=== PATIENT | male | born 1960 | race Hispanic/Latino ===

== ENCOUNTER → 2018-09-24 | Outpatient (CLI) | payer SELFPAY ==
--- NOTE | 2018-09-24 17:32 | Diagnostic Imaging Report ---
EXAMINATION: CHEST 2 VIEWS INDICATION: Lung cancer. ^SECONDARY MALIGNANT NEOPLASM OF UNSPEC'D LUNG COMPARISON: None FINDINGS: TUBES and LINES: None. LUNGS: Lungs are well inflated. Chronic appearing changes in the lungs with what appears to be minimal scarring/atelectasis at the left lung base. There is no evidence of pneumonia or pulmonary edema. PLEURA: No pleural effusion or pneumothorax. HEART AND MEDIASTINUM: The cardiomediastinal silhouette is unremarkable. BONES AND SOFT TISSUES: No acute osseous lesion. Soft tissues are unremarkable. UPPER ABDOMEN: No free air under the diaphragm. IMPRESSION: Chronic appearing changes in the lungs with what appears to be minimal scarring/atelectasis at the left lung base. Signed by: Dr. Tyler Currie M.D. on 09/24/2018 5:29 PM
== END ==
LOC: RAD 17:00
PROVIDERS: ATTEND Nurse Practitioner Acute Care
DX: C78.00 Secondary malignant neoplasm of unspecified lung (principal)
CPT/HCPCS: 71046

== ENCOUNTER 2019-12-23 19:09 | Inpatient (IN) | payer MEDICARE, OTHER ==
[~2019-12-23] VITALS: Ht 170.2 cm; Wt 87.1 kg
--- OUTSIDE RECORDS SUMMARY | 2019-12-23 19:11 | XMS REPORT ---
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 Allergies, Adverse Reactions, Alerts This patient has no known allergies or adverse reactions. Medications This patient has no known medications. Encounters Start Date/Time End Date/Time Encounter Type Admission Type [facility] Care Department Encounter ID 2019-09-02 11:09:39 Inpatient [facility] [id number] 2019-07-22 13:26:26 Inpatient [facility] [id number] 2019-06-24 11:08:05 Inpatient [facility] [id number] 2019-06-17 00:00:00 Inpatient [facility] [id number] 2019-04-15 11:41:23 Inpatient [facility] [id number] 2019-01-28 15:10:57 [place]patient [place] [id number] 2019-01-09 00:00:00 Inpatient [facility] [id number] 2018-12-31 08:57:40 Inpatient [facility] [id number] 2019-12-25 00:00:00 2019-12-25 00:00:00 Outpatient [facility] [id number] 2019-12-09 00:00:00 2019-12-09 00:00:00 Outpatient [facility] [id number] 2019-11-18 00:00:00 2019-11-18 00:00:00 Outpatient [facility] [id number] 2019-11-18 00:00:00 2019-11-18 00:00:00 Outpatient [facility] [id number] 2019-11-11 00:00:00 2019-11-11 00:00:00 Outpatient [facility] [id number] 2019-11-01 00:00:00 2019-11-01 00:00:00 Outpatient [facility] [id number] 2019-10-30 08:26:30 2019-10-30 08:26:30 Outpatient [facility] [id number] 2019-10-24 08:34:06 2019-10-24 08:34:06 Outpatient [facility] [id number] 2019-10-23 08:42:18 2019-10-23 08:42:18 Outpatient [facility] [id number] 2019-10-23 00:00:00 2019-10-23 00:00:00 Outpatient [facility] [id number] 2019-10-23 00:00:00 2019-10-23 00:00:00 Outpatient [facility] [id number] 2019-10-23 00:00:00 2019-10-23 00:00:00 Outpatient [facility] [id number] 2019-10-21 13:01:42 2019-10-21 13:01:42 Outpatient [facility] [id number] 2019-10-21 12:52:09 2019-10-21 12:52:09 Outpatient [facility] [id number] 2019-10-21 00:00:00 2019-10-21 00:00:00 Outpatient [facility] [id number] 2019-10-03 07:26:52 2019-10-03 07:26:52 Outpatient [facility] [id number] 2019-10-01 13:21:37 2019-10-01 13:21:37 Outpatient [facility] [id number] 2019-09-30 16:08:47 2019-09-30 16:08:47 Outpatient [facility] [id number] 2019-09-30 13:34:52 2019-09-30 13:34:52 Outpatient [facility] [id number] 2019-09-26 15:22:41 2019-09-26 15:22:41 Outpatient [facility] [id number] 2019-09-23 14:22:56 2019-09-23 14:22:56 Outpatient [facility] [id number] 2019-09-12 07:49:50 2019-09-12 07:49:50 Outpatient [facility] [id number] 2019-09-11 08:48:26 2019-09-11 08:48:26 Outpatient [facility] [id number] 2019-09-10 09:43:48 2019-09-10 09:43:48 Outpatient [facility] [id number] 2019-09-04 10:52:55 2019-09-04 10:52:55 Outpatient [facility] [id number] 2019-09-02 09:40:05 2019-09-02 09:40:05 Outpatient [facility] [id number] 2019-08-22 07:55:55 2019-08-22 07:55:55 Outpatient [facility] [id number] 2019-08-20 00:00:00 2019-08-20 00:00:00 Outpatient [facility] [id number] 2019-08-19 09:31:47 2019-08-19 09:31:47 Outpatient [facility] [id number] 2019-08-19 09:07:53 2019-08-19 09:07:53 Outpatient [facility] [id number] 2019-08-02 08:40:05 2019-08-02 08:40:05 Outpatient [facility] [id number] 2019-08-02 07:22:32 2019-08-02 07:22:32 Outpatient [facility] [id number] 2019-08-01 00:00:00 2019-08-01 00:00:00 Outpatient [facility] [id number] 2019-08-01 00:00:00 2019-08-01 00:00:00 Outpatient [facility] [id number] 2019-07-30 00:00:00 2019-07-30 00:00:00 Outpatient [facility] [id number] 2019-07-25 13:04:59 2019-07-25 13:04:59 Outpatient [facility] [id number] 00:00:00 2019 00:00:00 Outpatient [facility] [id number] 2019-07-22 12:52:56 2019-07-22 12:52:56 Outpatient [facility] [id number] 2019-07-17 07:45:06 2019-07-17 07:45:06 Outpatient [facility] [id number] 2019-07-17 07:28:36 2019-07-17 07:28:36 Outpatient [facility] [id number] 2019-07-17 00:00:00 2019-07-17 00:00:00 Outpatient [facility] [id number] 2019-07-15 14:16:53 2019-07-15 14:16:53 Outpatient [facility] [id number] 2019-06-26 11:00:43 2019-06-26 11:00:43 Outpatient [facility] [id number] 2019-06-26 10:15:15 2019-06-26 10:15:15 Outpatient [facility] [id number] 2019-06-26 00:00:00 2019-06-26 00:00:00 Outpatient [facility] [id number] 2019-06-26 00:00:00 2019-06-26 00:00:00 Outpatient [facility] [id number] 2019-06-24 10:07:52 2019-06-24 10:07:52 Outpatient [facility] [id number] 2019-06-21 11:17:24 2019-06-21 11:17:24 Outpatient [facility] [id number] 2019-06-21 00:00:00 2019-06-21 00:00:00 Outpatient [facility] [id number] 2019-06-17 00:00:00 2019-06-17 00:00:00 Outpatient [facility] [id number] 2019-05-06 09:24:00 2019-05-06 09:24:00 Outpatient [facility] [id number] 2019-05-06 08:53:53 2019-05-06 08:53:53 Outpatient [facility] [id number] 2019-05-06 07:57:06 2019-05-06 07:57:06 Outpatient [facility] [id number] 2019-05-06 00:00:00 2019-05-06 00:00:00 Outpatient [facility] [id number] 2019-05-06 00:00:00 2019-05-06 00:00:00 Outpatient [facility] [id number] 2019-04-10 00:00:00 2019-04-10 00:00:00 Outpatient [facility] [id number] 2019-04-09 09:46:59 2019-04-09 09:46:59 Outpatient [facility] [id number] 2019-04-08 00:00:00 2019-04-08 00:00:00 Outpatient [facility] [id number] 2019-04-05 11:38:40 2019-04-05 11:38:40 Outpatient [facility] [id number] 2019-04-05 10:42:47 2019-04-05 10:42:47 Outpatient [facility] [id number] 2019-04-05 00:00:00 2019-04-05 00:00:00 Outpatient [facility] [id number] 2019-03-15 00:00:00 2019-03-15 00:00:00 Outpatient [facility] [id number] 2019-03-13 08:38:2019-03-13 08:38:06 Outpatient [facility] [id number] 2019-02-14 08:17:21 2019-02-14 08:17:21 Outpatient [facility] [id number] 2019-02-13 00:00:00 2019-02-13 00:00:00 Outpatient [facility] [id number] 2019-01-31 10:14:23 2019-01-31 10:14:23 Outpatient [facility] [id number] 2019-01-31 08:52:56 2019-01-31 08:52:56 Outpatient [facility] [id number] 2019-01-31 00:00:00 2019-01-31 00:00:00 Outpatient [facility] [id number] 2019-01-28 14:09:07 2019-01-28 14:09:07 Outpatient [facility] [id number] 2019-01-22 13:19:23 2019-01-22 13:19:23 Outpatient [facility] [id number] 2019-01-16 00:00:00 2019-01-16 00:00:00 Outpatient [facility] [id number] 2019-01-15 10:07:09 2019-01-15 10:07:09 Outpatient [facility] [id number] 2019-01-15 08:55:58 2019-01-15 08:55:58 Outpatient [facility] [id number] 2019-01-04 00:00:00 2019-01-04 00:00:00 Outpatient [facility] [id number] 2019-01-02 11:13:24 2019-01-02 11:13:24 Outpatient [facility] [id number] 2018-12-31 10:52:03 2018-12-31 10:52:03 Outpatient [facility] [id number] 2018-12-28 00:00:00 2018-12-28 00:00:00 Outpatient [facility] [id number] 2018-12-19 15:46:25 2018-12-19 15:46:25 Outpatient [facility] [id number] 2018-12-13 13:40:52 2018-12-13 13:40:52 Outpatient [facility] [id number] 2018-12-11 11:21:01 2018-12-11 11:21:01 Outpatient [facility] [id number] 2018-12-03 08:45:18 2018-12-03 08:45:18 Outpatient [facility] [id number] 2018-11-21 04:55:43 2018-11-21 04:55:43 Emergency [facility] [id number] 2018-11-21 00:39:12 2018-11-21 00:39:12 Outpatient [facility] [id number] 2018-11-21 00:00:00 2018-11-21 00:00:00 Emergency [facility] [id number] 2018-11-20 17:37:35 2018-11-20 17:37:35 Emergency [facility] [id number] 2018-11-19 13:50:39 2018-11-19 13:50:39 Outpatient [facility] [id number] 2018-11-19 00:00:00 2018-11-19 00:00:00 Outpatient [facility] [id number] 2018-11-05 09:36:05 2018-11-05 09:36:05 Outpatient [facility] [id number] 2018-11-05 08:29:43 2018-11-05 08:29:43 Outpatient [facility] [id number] Results Test Description Test Time Test Comments Text Results Atomic Results Result Comments CHEST 2 VIEWS 2018-09-24 17:28:00 [place] [address] Patient Name: LAWRENCE ÁLVAREZ MR #: [id number] : 1960 Age/Sex: 58/M Req #: [id number] Adm Physician: Ordered by: ADRIAN MARIE SAMPLE PULLER Report #: [id number] Location: [facility] Room/Bed: Procedure: [id number] DX/CHEST 2 VIEWS Exam Date: Exam Time: REPORT STATUS: Signed EXAMINATION: CHEST 2 VIEWS INDICATION: Lung cancer. SECONDARY MALIGNANT NEOPLASM OF UNSPEC'D LUNG COMPARISON: None FINDINGS: TUBES and LINES: None. LUNGS: Lungs are well inflated. Chronic appearing changes in the lungs with what appears to be minimal scarring/atelectasis at the left lung base. There is no evidence of pneumonia or pulmonary edema. PLEURA: No pleural effusion or pneumothorax. HEART AND MEDIASTINUM: The cardiomediastinal silhouette is unremarkable. BONES AND SOFT TISSUES: No acute osseous lesion. Soft tissues are unremarkable. UPPER ABDOMEN: No free air under the pan phragm. IMPRESSION: Chronic appearing changes in the lungs with what appears to be minimal scarring/atelectasis at the left lung base. Signed by: Dr. Tyler Currie M.D. on 09/24/2018 5:29 PM Dictated By: TYLER CURRIE MD, MD 28 Transcribed By: DONNA on 09/24/181728 COPY TO: ADRIAN MARIE NP
[2019-12-23] MEDS ORDERED: ACETAMINOPHEN 325 MG TAB PO ONE (19:45)
[2019-12-23 19:59] LABS: STREPTOCOCCUS GRP A ANTIGEN NEGATIVE (NEGATIVE)
--- NOTE | 2019-12-23 20:01 | Diagnostic Imaging Report ---
EXAMINATION: CHEST SINGLE (PORTABLE) COMPARISON: Chest x-ray 09/24/2018 INDICATION: ^Y ^fever, cough ^20191223 ^1939 ^Y DISCUSSION: Frontal view of the chest obtained at 1940 hours. HEART AND MEDIASTINUM: The heart is top normal in size. LINES: None. LUNGS/PLEURA: Low lung volumes. A 2.2 cm nodule or infiltrate in the inferior aspect of the right lung measured 1.6 cm previously. Patchy airspace opacities in the left lung. No pleural effusion or pneumothorax. BONES AND SOFT TISSUES: No focal osseous lesion. The soft tissues are normal. ABDOMEN: Multiple surgical clips in the medial right upper quadrant are stable. IMPRESSION: Enlarging right basilar nodule or focal infiltrate. Patchy airspace opacities in the left lung may represent atelectasis or pneumonia. Recommend correlation with CT of the chest, particularly if there is a history of malignancy. Signed by: Dr. Herve Vasquez MD on 12/23/2019 7:57 PM
[2019-12-23 20:04] LABS: INFLUENZAE A&B ANTIGEN (RAPID) NEGATIVE (NEGATIVE)
[2019-12-23] MEDS ORDERED: ASPIRIN 81 MG CHEW TAB PO ONE (20:15)
[2019-12-23] MEDS ORDERED: SODIUM CHLORIDE 0.9% 1000ML 1,000 ML IV ONE ×2 (20:15→21:45)
[2019-12-23] MEDS: CEFEPIME 2 GM/NS 0.9% 100 ML 100 ML IV SCH (20:36)
[2019-12-23 20:37] LABS: BASOPHILS % 0.2 % (0.0-1.0); EOSINOPHILS # (AUTO) 0.2 (0.0-0.4); EOSINOPHILS % 0.8 % (0.0-6.0); HEMATOCRIT 33.1 % (38.2-49.6); HEMOGLOBIN 10.8 g/dL (14.0-18.0); LYMPHOCYTES # (AUTO) 0.7 (1.0-3.2); LYMPHOCYTES % 3.7 % (18.0-39.1); MEAN CORPUSCULAR HEMOGLOBIN 27.1 pg (28-32); MEAN CORPUSCULAR HGB CONC 32.6 g/dL (31-35); MONOCYTES # (AUTO) 1.2 (0.2-0.8); MONOCYTES % 6.9 % (4.4-11.3); NEUTROPHILS # (AUTO) 15.8 (2.1-6.9); PLATELET COUNT 358 x10e3/uL (140-360); RED BLOOD COUNT 3.99 x10e6/uL (4.3-5.7)
[2019-12-23 20:47] LABS: INR 0.98; PROTHROMBIN TIME 13.6 seconds (11.9-14.5)
[2019-12-23 20:48] LABS: PARTIAL THROMBOPLASTIN TIME 29.9 seconds (23.8-35.5)
[2019-12-23 20:57] LABS: ALANINE AMINOTRANSFERASE 15 IU/L (0-55); ALBUMIN 3.3 g/dL (3.5-5.0); ALBUMIN/GLOBULIN RATIO 0.8 (0.8-2.0); ALKALINE PHOSPHATASE 122 IU/L (40-150); ANION GAP 17.4 mmol/L (8-16); BLOOD UREA NITROGEN 30 mg/dL (7-26); BUN/CREATININE RATIO 26 (6-25); CALCIUM 10.3 mg/dL (8.4-10.2); CARBON DIOXIDE 27 mmol/L (22-29); CHLORIDE 95 mmol/L (98-107); CREATINE KINASE 19 IU/L (30-200); CREATININE, SERUM 1.16 mg/dL (0.72-1.25); EST GLOMERULAR FILTRATION RATE > 60 ML/MIN (60-); GLUCOSE 162 mg/dL (74-118); POTASSIUM 4.4 mmol/L (3.5-5.1); SODIUM 135 mmol/L (136-145)
[2019-12-23] MEDS: AZITHROMYCIN 500MG/NS 250 ML 250 ML IV SCH (21:40)
[2019-12-23] MEDS ORDERED: DEXTROSE 50% SYRINGE 50 ML IV PRN (21:45)
[2019-12-23] MEDS ORDERED: ACETAMINOPHEN 325 MG TAB PO PRN (21:45)
--- NOTE | 2019-12-23 23:02 | NUR ---
Patient resting with no distress at this time. Call light remains at bedside. No distress noted. RR even and unlabored. Patient denies shortness of breath.
--- NOTE | 2019-12-24 00:36 | NUR ---
Patient resting with no distress. Call light at bedside.
[2019-12-24] MEDS ORDERED: HUMALOG100 UNIT/1 SC (01:55)
[2019-12-24] MEDS ORDERED: CARVEDILOL6.25 MG PO (01:55)
[2019-12-24] MEDS ORDERED: METFORMIN HCL500 MG PO (01:55)
[2019-12-24] MEDS ORDERED: ATORVASTATIN CA20 MG PO (01:55)
[2019-12-24] MEDS ORDERED: DIOVAN80 MG PO (01:55)
[2019-12-24] MEDS ORDERED: LEVEMIR FL100 UNIT/1 SC ×2 (01:55)
[2019-12-24] MEDS ORDERED: FUROSEMIDE20 MG PO (01:55)
--- NOTE | 2019-12-24 02:58 | NUR ---
Patient continues to deny shortness of breath at this time. No distress noted. RR even and unlabored. Call light remains at bedside. Instructed patient to call if he needed assistance. Patient verbalized understanding.
[2019-12-24 04:26] LABS: BASOPHILS % 0.1 % (0.0-1.0); EOSINOPHILS # (AUTO) 0.2 (0.0-0.4); EOSINOPHILS % 1.1 % (0.0-6.0); HEMATOCRIT 31.6 % (38.2-49.6); HEMOGLOBIN 10.1 g/dL (14.0-18.0); MEAN CORPUSCULAR HEMOGLOBIN 26.9 pg (28-32); MONOCYTES # (AUTO) 1.4 (0.2-0.8); MONOCYTES % 8.6 % (4.4-11.3); NEUTROPHILS # (AUTO) 13.6 (2.1-6.9); NEUTROPHILS % 83.8 % (38.7-80.0); RED BLOOD COUNT 3.76 x10e6/uL (4.3-5.7); RED CELL DISTRIBUTION WIDTH 15.2 % (11.7-14.4)
[2019-12-24 04:34] LABS: PLATELET COUNT 328 x10e3/uL (140-360)
[2019-12-24 04:40] LABS: ALBUMIN 2.9 g/dL (3.5-5.0); ALBUMIN/GLOBULIN RATIO 0.7 (0.8-2.0); ANION GAP 13.4 mmol/L (8-16); CALCIUM 9.3 mg/dL (8.4-10.2); CREATININE, SERUM 1.34 mg/dL (0.72-1.25); POTASSIUM 4.4 mmol/L (3.5-5.1)
[2019-12-24 04:59] LABS: CREATINE KINASE MB 0.5 ng/mL (0-5.0)
[2019-12-24] MEDS: CEFEPIME 2 GM/NS 0.9% 100 ML 100 ML IV SCH ×3 (05:09→23:42)
--- NOTE | 2019-12-24 05:11 | NUR ---
Patient denies shortness of breath. Patient states he feels fine. No respiratory distress noted. Patient placed on one liter NC for increased respiratory rate. Will continue to monitor patient closely.
--- NOTE | 2019-12-24 06:26 | NUR ---
Patient resting with no distress noted. RR even and unlabored. Call light at bedside.
--- NOTE | 2019-12-24 06:34 | NUR ---
Report to CARL Neumann.
[2019-12-24] MEDS: INSULIN REGULAR, HUMAN 100 UNIT/1 ML 3ML VIAL SQ SCH ×3 (07:24→16:50)
--- NOTE | 2019-12-24 07:42 | NUR ---
dr danielle in room with pt
--- NOTE | 2019-12-24 08:23 | Consultation ---
DATE OF CONSULTATION: Pulmonary Critical Care Consultation CHIEF COMPLAINT: Cough and fever. HISTORY OF PRESENT ILLNESS: The patient is a 59-year-old man. He has a history of renal cancer with lung metastases. He had a prior nephrectomy. He received chemotherapy through [facility]. He has some chronic cough and some nasal drainage. Yesterday, he noted a fever and some increased congestion. He came to the emergency department. He received fluids and IV antibiotics and was diagnosed with possible pneumonia. He also had a COVID-19 test, that was negative. PAST SURGICAL HISTORY: Status post nephrectomy. PAST MEDICAL HISTORY: 1. Diabetes. 2. Metastatic renal cancer. 3. Hypertension. 4. Hyperlipidemia. FAMILY HISTORY: His father had cancer at an early age. ALLERGIES: NO KNOWN DRUG ALLERGIES. SOCIAL HISTORY: He is not an active smoker. He is not an active drinker. REVIEW OF SYSTEMS: The patient is afebrile. He has no headache. He is not having any neck pain. He denies any chest pain. He is not having any trouble breathing. He has no abdominal pain. He has no nausea or vomiting. He has no leg swelling. PHYSICAL EXAMINATION: VITAL SIGNS: The patient is afebrile, blood pressure is 137/66, saturation is 100%, and pulse is 70. HEENT: Shows no facial swelling or erythema. CARDIAC: Reveals regular rate and rhythm with normal S1 and S2. LUNGS: Auscultation of lungs shows clear breath sounds bilaterally. There is no wheezing. ABDOMEN: Soft, nontender. There is no rebound or guarding. EXTREMITIES: Show no leg edema or calf tenderness. There is no cyanosis or clubbing. SKIN: Shows no rashes. NEUROLOGICAL: Shows no focal abnormalities. LABORATORY DATA: White blood cell count is 16.2, hemoglobin is 10.1, and platelet count is 328. The BUN to creatinine ratio is 27 to 1.34 and the blood sugar is 278. The other electrolytes are within normal limits. Albumin is 2.9. RADIOGRAPHIC DATA: Chest x-ray shows a right basilar nodular infiltrate. There is some airspace opacity in the left lung base. A CT scan from 2017 showed multiple lung nodules, consistent with metastatic disease as well as a left adrenal mass. IMPRESSION: 1. Metastatic kidney cancer. The patient is currently receiving chemotherapy through [facility]. 2. Acute kidney injury. 3. Anemia, unspecified. 4. Pneumonia with exposure to healthcare-related organisms. PLAN: 1. IV fluids. 2. Broad-spectrum antibiotics to cover for healthcare-associated organisms. 3. CT scan of chest. 4. Monitor renal function. 5. Monitor blood pressure. MD RANDA Patel/MARIAA /[id number]
[2019-12-24] MEDS: VANCOMYCIN 1GM/NS 250 ML 250 ML IV SCH (09:33)
[2019-12-24] MEDS: VALSARTAN 80 MG TAB PO SCH (09:33)
--- NOTE | 2019-12-24 10:30 | Diagnostic Imaging Report ---
CT of the chest, without contrast. History: Metastatic renal cell carcinoma, fever/cough. Comparison: Report from CT chest without contrast from 03/07/2017 (images not available for direct comparison). Technique: Multidetector CT scanning of the chest was performed from the level of the apices to the upper abdomen without contrast. Coronal and sagittal multiplanar reformations were obtained. RADIATION DOSE: Total DLP: 481.14 mGy*cm Dose modulation, iterative reconstruction, and/or weight based adjustment of the mA/kV was utilized to reduce the radiation dose to as low as reasonably achievable. FINDINGS: The thyroid and remaining visual structures within the base of the neck demonstrate no significant abnormalities. The thoracic aorta is normal in course and caliber with atherosclerotic calcifications. The heart is not enlarged. No abnormal pericardial fluid is present. Atherosclerotic calcifications are noted within the coronary arteries. Multiple enlarged mediastinal and bilateral hilar lymph nodes are identified. A precarinal lymph node measures 1.1 x 1.4 cm (axial image 44). A right hilar lymph node measures 1.1 x 1.9 cm (axial image 53). The trachea and proximal airways are patent. Examination of the lungs demonstrates multiple bilateral pulmonary nodules which are increased in size/number from the prior examination. A right upper lobe nodule measures 1.3 cm (image 48). A right middle lobe nodule measures 1.8 cm (image 84). A right lower lobe nodule measures 1.7 cm (image 60). A left upper lobe nodule measures 1.4 cm (image 49). Areas of subsegmental atelectasis identified within the lower lobes bilaterally. There is no evidence for consolidation, pneumothorax, or pleural effusion. There is a partially visualized soft tissue mass within the left upper quadrant which likely reflects the known left adrenal mass but is incompletely evaluated on this examination of the chest. The osseous structures within the chest demonstrate no evidence for acute fracture or destructive process. The extrathoracic soft tissues are unremarkable. IMPRESSION: Progression of metastatic disease including increased size/number of pulmonary nodules and development of mediastinal/hilar lymphadenopathy as detailed above. No evidence for superimposed consolidation. Partially visualized soft tissue mass within the left upper quadrant likely reflecting known left adrenal mass. Signed by: Dr. Chuckie Pablo MD on 12/24/2019 10:26 AM
[2019-12-24] MEDS ORDERED: BENZONATATE 100 MG CAP PO PRN (11:45)
[2019-12-24] MEDS ORDERED: HYDRALAZINE HCL 20 MG/ML VIAL IV PRN (11:45)
[2019-12-24] MEDS: LORATADINE/PSEUDOEPHEDRINE 24 HR SR TAB PO SCH (11:45)
[2019-12-24] MEDS ORDERED: ACETAMINOPHEN/CODEINE 300MG - 30MG TAB PO PRN (11:45)
[2019-12-24] MEDS ORDERED: MELATONIN 5 MG TABLET PO PRN (11:45)
[2019-12-24] MEDS ORDERED: ACETAMINOPHEN 325 MG TAB PO PRN (11:45)
[2019-12-24] MEDS ORDERED: ONDANSETRON HCL INJ 2MG/ML 2ML 2 MG/ML VIAL IV PRN (11:45)
[2019-12-24 12:34] LABS: BASOPHILS % 0.1 % (0.0-1.0); EOSINOPHILS # (AUTO) 0.2 (0.0-0.4); EOSINOPHILS % 1.3 % (0.0-6.0); HEMATOCRIT 28.8 % (38.2-49.6); HEMOGLOBIN 9.5 g/dL (14.0-18.0); LYMPHOCYTES % 6.3 % (18.0-39.1); MEAN CORPUSCULAR HEMOGLOBIN 27.5 pg (28-32); MEAN CORPUSCULAR VOLUME 83.5 fL (81-99); MONOCYTES # (AUTO) 1.1 (0.2-0.8); MONOCYTES % 7.5 % (4.4-11.3); NEUTROPHILS # (AUTO) 12.8 (2.1-6.9); NEUTROPHILS % 84.4 % (38.7-80.0); PLATELET COUNT 297 x10e3/uL (140-360); RED BLOOD COUNT 3.45 x10e6/uL (4.3-5.7); RED CELL DISTRIBUTION WIDTH 15.3 % (11.7-14.4)
[2019-12-24 12:35] VITALS: BP 145/73
[2019-12-24 13:06] LABS: ANION GAP 10.7 mmol/L (8-16); BLOOD UREA NITROGEN 19 mg/dL (7-26); BUN/CREATININE RATIO 24 (6-25); CALCIUM 7.9 mg/dL (8.4-10.2); CARBON DIOXIDE 24 mmol/L (22-29); CHLORIDE 105 mmol/L (98-107); EST GLOMERULAR FILTRATION RATE > 60 ML/MIN (60-); GLUCOSE 177 mg/dL (74-118); POTASSIUM 3.7 mmol/L (3.5-5.1); SODIUM 136 mmol/L (136-145)
[2019-12-24 13:15] LABS: CREATINE KINASE MB 1.4 ng/mL (0-5.0)
[2019-12-24 13:16] VITALS: BP 145/73
[2019-12-24] MEDS ORDERED: SODIUM CHLORIDE 0.9% 250ML 250 ML ONE (15:53)
--- NOTE | 2019-12-24 16:20 | NUR ---
pt stated that he sees Dr. Lisa Cardozo (oncology) at [facility] Alida Brown MD is PCP
[2019-12-24 16:28] VITALS: BP 133/66
--- NOTE | 2019-12-24 18:31 | Consultation ---
DATE OF CONSULTATION: REASON FOR CONSULTATION: Fever. HISTORY OF PRESENT ILLNESS: This patient, who is a 59-year-old, who comes in with fever and chills. The patient who has history of renal cell cancer with lung metastases, nephrectomy, received chemotherapy in [facility]. He is telling me since August, he has been having some fever on and off and cough. The patient had COVID-19 test, which was negative. He is currently lying in bed, comfortable. PAST MEDICAL HISTORY: Renal cancer with diabetes, hypertension, and hyperlipidemia. PAST SURGICAL HISTORY: Nephrectomy. ALLERGIES: NKA. SOCIAL HISTORY: There is no smoking, drug abuse, or alcohol abuse. FAMILY HISTORY: Otherwise unremarkable. LABORATORY DATA: White count 15.17 and hemoglobin 9.5. Sodium 136, potassium 3.7, and creatinine 0.8. His COVID-19 was negative. Influenza was negative. He had a CT of the chest, which showed metastatic disease. PHYSICAL EXAMINATION: GENERAL: He is currently alert, oriented, does not seem in acute distress. VITAL SIGNS: Afebrile. HEENT: He is not icteric. NECK: Supple. CHEST: Clear. COR: S1, S2. No murmurs. ABDOMEN: Soft. The patient is currently on vancomycin and cefepime. IMPRESSION AND PLAN: Progressive shortness of breath, I think due to his malignancy. Chest x-ray and CAT scan does not reveal cancer. He is currently on vancomycin and cefepime, if blood cultures are negative in 48 hours, can discontinue. Continue supportive care. We will follow. MD JOEL Najera/MARIAA /[id number]
[2019-12-24 20:00] VITALS: BP 140/63
[2019-12-24] MEDS ORDERED: ATORVASTATIN 20 MG TAB PO SCH (21:00)
[2019-12-24] MEDS ORDERED: INSULIN GLARGINE 100 UNITS/ML VIAL SC SCH (21:00)
[2019-12-24 21:09] VITALS: BP 140/63
[2019-12-24 21:33] LABS: CREATINE KINASE MB 1.6 ng/mL (0-5.0)
[2019-12-24] MEDS: AZITHROMYCIN 500MG/NS 250 ML 250 ML IV SCH (23:42)
[2019-12-25] VITALS: BP 136/63
[2019-12-25] MEDS: INSULIN REGULAR, HUMAN 100 UNIT/1 ML 3ML VIAL SQ SCH ×3 (00:15→11:44)
[2019-12-25 04:00] VITALS: BP 138/81
[2019-12-25] MEDS: CEFEPIME 2 GM/NS 0.9% 100 ML 100 ML IV SCH (06:09)
[2019-12-25 06:27] LABS: BASOPHILS % 0.2 % (0.0-1.0); EOSINOPHILS # (AUTO) 0.2 (0.0-0.4); EOSINOPHILS % 1.5 % (0.0-6.0); HEMATOCRIT 29.9 % (38.2-49.6); HEMOGLOBIN 9.8 g/dL (14.0-18.0); LYMPHOCYTES # (AUTO) 0.9 (1.0-3.2); LYMPHOCYTES % 6.6 % (18.0-39.1); MEAN CORPUSCULAR HEMOGLOBIN 27.4 pg (28-32); MEAN CORPUSCULAR HGB CONC 32.8 g/dL (31-35); MEAN CORPUSCULAR VOLUME 83.5 fL (81-99); MONOCYTES # (AUTO) 1.2 (0.2-0.8); MONOCYTES % 8.5 % (4.4-11.3); NEUTROPHILS # (AUTO) 11.7 (2.1-6.9); NEUTROPHILS % 82.8 % (38.7-80.0); PLATELET COUNT 305 x10e3/uL (140-360); RED BLOOD COUNT 3.58 x10e6/uL (4.3-5.7); RED CELL DISTRIBUTION WIDTH 14.9 % (11.7-14.4)
[2019-12-25 06:51] LABS: ALANINE AMINOTRANSFERASE 12 IU/L (0-55); ALBUMIN 2.6 g/dL (3.5-5.0); ALBUMIN/GLOBULIN RATIO 0.6 (0.8-2.0); ALKALINE PHOSPHATASE 105 IU/L (40-150); ANION GAP 12.3 mmol/L (8-16); BLOOD UREA NITROGEN 20 mg/dL (7-26); BUN/CREATININE RATIO 17 (6-25); CALCIUM 9.7 mg/dL (8.4-10.2); CARBON DIOXIDE 27 mmol/L (22-29); CHLORIDE 98 mmol/L (98-107); CREATININE, SERUM 1.21 mg/dL (0.72-1.25); EST GLOMERULAR FILTRATION RATE > 60 ML/MIN (60-); GLUCOSE 256 mg/dL (74-118); POTASSIUM 4.3 mmol/L (3.5-5.1); SODIUM 133 mmol/L (136-145)
[2019-12-25 07:34] VITALS: BP 128/64
[2019-12-25 07:37] VITALS: BP 128/64
[2019-12-25] MEDS: LORATADINE/PSEUDOEPHEDRINE 24 HR SR TAB PO SCH (07:47)
[2019-12-25] MEDS: VALSARTAN 80 MG TAB PO SCH (07:47)
[2019-12-25] MEDS: VANCOMYCIN 1GM/NS 250 ML 250 ML IV SCH (08:57)
[2019-12-25] MEDS ORDERED: ONDANSETRON HCL 4 MG ORAL DISINTEGRATING TAB PO PRN (11:00)
[2019-12-25 11:12] VITALS: BP_SYST 128; BP_SYST 149; BP_DIAS 64; BP_DIAS 67
--- NOTE | 2019-12-25 12:09 | Progress Note ---
DATE: SUBJECTIVE: The patient is seen and evaluated. Discussed with the patient in detail. We discussed with Dr. Alma templeton as well. REVIEW OF SYSTEMS: The patient states that he coughs every time, he drinks. It does not matter if it is cold or warm, but he denies choking on liquids. He does not know why he coughs, but that is all he can tell. No nausea. No vomiting. Fever has improved. No chest pain. Shortness of breath has improved. PHYSICAL EXAMINATION: VITAL SIGNS: Temperature is 97.5, which has improved from 100.5 on admission, pulse is 69, respiration 20, and blood pressure 128/64. GENERAL: Alert and oriented, very pleasant, no acute distress. CV: S1 and S2. CHEST: Equal expansion. Clear to auscultation with decreased breath sounds. No acute distress. ABDOMEN: Soft and nontender. No distention. HEENT: Moist. No pallor. No JVD. EXTREMITIES: Moves all. No significant edema. MEDICATIONS: Medication list reviewed and as far as Infectious Disease point of view, the patient is on vancomycin IV, cefepime, and Zithromax. LABORATORY STUDIES: White count of 14.12, improved from 15.17, hemoglobin 9.8, platelets 305. Sodium 133, potassium 4.3, creatinine 1.21. Coronavirus-19 PCR not detected on 12/22. Influenza type A and B antigen and group A strep screen negative on 12/23/2019. MICROBIOLOGY: Blood cultures negative on 12/22. Sputum culture showed usual respiratory ian presented on the sample on 12/23/2019. RADIOLOGY STUDIES: CT of the chest showed progression of the metastatic disease including increased size and number of pulmonary nodules and development of mediastinal/hilar lymphadenopathy. No evidence of a superimposed consolidation. Partially visualized soft tissue mass within the left upper quadrant, likely reflect a known left adrenal mass. ASSESSMENT AND PLAN: 1. Shortness of breath, progressive. 2. Fever, resolved. 3. Metastatic lung disease on CT. 4. No consolidation on CT. 5. Antibiotics as mentioned. Discussed with Dr. Marquez. Please refer to chart for more information. Dictated by Shawn Borges PA-C (Al) Christopher Marquez MD /MODL /[id number]
--- NOTE | 2019-12-25 12:45 | Progress Note ---
DATE: SUBJECTIVE: The patient feels better. He is not having any fevers. He denies cough or dyspnea. He was seen by Infectious Disease. PHYSICAL EXAMINATION: VITAL SIGNS: Blood pressure is 149/67 and saturation is 99%. HEENT: Shows no facial swelling or erythema. CARDIAC: Reveals regular rate and rhythm with normal S1 and S2. LUNGS: Auscultation of lungs reveals clear breath sounds bilaterally. There is no wheezing. ABDOMEN: Soft and nontender. There is no rebound or guarding. EXTREMITIES: Shows no leg edema or calf tenderness. There is no cyanosis or clubbing. SKIN: Shows no rashes. NEUROLOGICAL: Shows no focal abnormalities. LABORATORY DATA: White blood cell count is 14.1 and the hemoglobin is 9.8. The platelet count is 305. BUN to creatinine ratio is 20 to 1.21. The blood sugars 240 to 322. IMPRESSION: 1. Acute kidney injury. 2. Metastatic renal cell carcinoma. 3. Anemia, unspecified. PLAN: 1. Continue to monitor renal function. 2. Switch to oral antibiotics. 3. Follow up with Oncology. Russell Barrientos MD LM/MODL /[id number]
--- NOTE | 2019-12-26 11:58 | Discharge Summary ---
ADMISSION DIAGNOSES: 1. Renal cancer with lung mets with shortness of breath. 2. Hospital-acquired pneumonia, present on admission. 3. Hypertension. 4. Type 2 diabetes. 5. Hyperlipidemia. 6. Acute kidney injury. DISCHARGE DIAGNOSES: 1. Renal cancer with lung mets with shortness of breath. 2. Hospital-acquired pneumonia, present on admission. 3. Hypertension. 4. Type 2 diabetes. 5. Hyperlipidemia. 6. Acute kidney injury. 7. Rule out hospital-acquired pneumonia. HISTORY: Type 2 diabetes, hypertension, hyperlipidemia, renal cancer with mets. SURGICAL HISTORY: Right nephrectomy. FAMILY HISTORY: The patient's brother had cancer. The patient's mom, dad, and sister had diabetes and the patient's sister had a stroke. SOCIAL HISTORY: Noncontributory. HOSPITAL COURSE: A 59-year-old male with past medical history of renal cancer with mets to the lungs, admitted with complaints of fever and cough. The cough has been for months, but the fever started 2-3 days ago. He has associated runny nose and congestion. The fever was up to 101. His COVID test was negative in the ER. Chest x-ray showed enlarging right basilar nodule or focal infiltrate. Patchy airspace opacities in the left lung may represent atelectasis or pneumonia, so a followup CT was done of the chest that showed progression of metastatic disease including increased size and number of pulmonary nodules and development of mediastinal/hilar lymphadenopathy. No evidence of superimposed consolidation. Pulmonology and Infectious Disease were consulted. Flu and Strep were negative. Blood cultures negative x24 hours and throat culture negative x24 hours. Per Infectious Disease recommendation, the patient can discharge home as there is no sign of infection. He will follow up with [facility] for his chemo treatment. The patient was assessed for oxygen prior to discharge and he does not qualify. He will follow up with primary care in 1-2 weeks. The patient understands discharge instructions and agrees to plan. Vital signs stable, the patient afebrile. Dictated by Leatha Parr NP MD GLEN Simpson/MODL /[id number]
== END 2019-12-25 13:16 | disposition home or self-care (01) | DRG 872 ==
LOC: ER 19:09 → ERHOLD 21:57 → MED/SURG3 12-24 12:23
PROVIDERS: ADMIT Internal Medicine; ATTEND Internal Medicine
DX: A41.9 Sepsis, unspecified organism (principal); N17.9 Acute kidney failure, unspecified; C64.1 Malignant neoplasm of right kidney, except renal pelvis; C78.00 Secondary malignant neoplasm of unspecified lung; I10 Essential (primary) hypertension; E11.9 Type 2 diabetes mellitus without complications; E78.5 Hyperlipidemia, unspecified; Z90.5 Acquired absence of kidney; Z83.3 Family history of diabetes mellitus; Z82.49 Family history of ischemic heart disease and other diseases of the circulatory system; Z82.3 Family history of stroke; Z80.9 Family history of malignant neoplasm, unspecified; D64.9 Anemia, unspecified; Z79.4 Long term (current) use of insulin
CPT/HCPCS: 36415; 71045; 71250; 80048; 80053; 82550; 82553; 82948; 83518; 83605; 83735; 84484; 85025; 85610; 85730; 87040; 87070; 87400; 87635; 93005; 99285; J0456; J1815; J1817; J3370; J7030; J7050

== ENCOUNTER 2020-02-05 18:54 | Emergency (ER) | payer MEDICARE, OTHER ==
[~2020-02-05] VITALS: Ht 170.2 cm; Wt 87.1 kg
[~2020-02-05 18:54] MED LIST: ATORVASTATIN CA20 MG PO; CARVEDILOL6.25 MG PO; DIOVAN80 MG PO; FUROSEMIDE20 MG PO; HUMALOG100 UNIT/1 SC; LEVEMIR FL100 UNIT/1 SC; METFORMIN HCL500 MG PO
[2020-02-05] MEDS ORDERED: SODIUM CHLORIDE 0.9% 1000ML 1,000 ML IV STA (19:09)
--- NOTE | 2020-02-05 19:13 | Emergency Department Note ---
History of Present Illnes History of Present Illness Chief Complaint: General Medicine Complaints History of Present Illness This is a 59 year old male presents to the ED for weakness and low temperature since this AM. Denies cough or fevers, patient erratic historian regarding PUI risk factors. PMH of lung CA . Historian: Patient, Family Member Concreting Supervisor Required: No Onset (how long ago): day(s) (1) Radiation: Reports flank (b/l) Severity: moderate Onset quality: gradual Duration (how long): day(s) (1) Timing of current episode: constant Progression: worsening Chronicity: new Context: Reports recent illness Relieving factors: none Exacerbating factors: none Associated symptoms: Reports weakness; Denies cough Treatments prior to arrival: none Past Medical/Family History Physician Review I have reviewed the patient's past medical and family history. Any updates have been documented here. Past Medical History Recent Fever: No Clinical Suspicion of Infectio: Yes New/Unexplained Change in Ment: No Past Medical History: Hypertension, Diabetes, Cancer, Hyperlipedemia Other Medical History: kidney cancer with mets to lungs Other Surgery: Right nephrectomy Social History Smoking Cessation: Never Smoker Alcohol Use: None Any Illegal Drug Use: No Other Last Tetanus: unk Review of Systems Review of Systems Constitutional: Reports weakness; Denies fever EENTM: Reports no symptoms Cardiovascular: Reports no symptoms Respiratory: Denies cough Gastrointestinal: Reports no symptoms Genitourinary: Reports no symptoms Musculoskeletal: Reports no symptoms Integumentary: Reports no symptoms Neurological: Reports no symptoms Psychological: Reports no symptoms Endocrine: Reports no symptoms Hematological/Lymphatic: Reports no symptoms Physical Exam Related Data Allergies: Coded Allergies: No Known Allergies (Unverified , 12/23/19) Vital signs reviewed: Yes Physical Exam CONSTITUTIONAL Constitutional: Present ill appearing HENT HENT: Present normocephalic, Present atraumatic, Present oropharynx clear/moist, Present nose normal HENT L/R: Present left ext ear normal, Present right ext ear normal EYES Eyes: Reports PERRL, Reports conjunctivae normal NECK Neck: Present ROM normal PULMONARY Pulmonary: Present effort normal, Present breath sounds normal CARDIOVASCULAR Cardiovascular: Present regular rhythm, Present heart sounds normal, Present capillary refill normal, Present normal rate GASTROINTESTINAL Abdominal: Present soft, Present nontender, Present bowel sounds normal GENITOURINARY Genitourinary: Present exam deferred SKIN Skin: Present dry, Present other (cool) MUSCULOSKELETAL Musculoskeletal: Present ROM normal NEUROLOGICAL Neurological: Present alert, Present oriented x 3, Present no gross motor or sensory deficits PSYCHOLOGICAL Psychological: Present mood/affect normal, Present judgement normal Results Laboratory Lab results reviewed: Yes Laboratory comments Laboratory Tests Test 02/06/20 00:15 02/05/20 21:30 02/05/20 21:09 02/05/20 19:36 Lactic Acid Level 1.2 mmol/L (0.5-2.0) 2.2 mmol/L (0.5-2.0) Urine Color Yellow (YELLOW) Urine Clarity Cloudy (CLEAR) Urine pH 5 (5 - 7) Urine Specific [place] 1.020 (1.010-1.025) Urine Protein 2+ (NEGATIVE) Urine Glucose (UA) Negative (NEGATIVE) Urine Ketones Negative (NEGATIVE) Urine Blood Moderate (NEGATIVE) Urine Nitrite Positive (NEGATIVE) Urine Bilirubin Negative (NEGATIVE) Urine Urobilinogen 0.2 mg/dL (0.2 - 1) Urine Leukocyte Esterase Large (NEGATIVE) Urine RBC 6-10 /HPF (0-5) Urine WBC >50 /HPF (0-5) Urine Epithelial Cells None /LPF (NONE) Urine Bacteria Many /HPF (NONE) White Blood Count 14.00 x10e3/uL (4.8-10.8) Red Blood Count 3.75 x10e6/uL (4.3-5.7) Hemoglobin 9.8 g/dL (14.0-18.0) Hematocrit 31.1 % (38.2-49.6) Mean Corpuscular Volume 82.9 fL (81-99) Mean Corpuscular Hemoglobin 26.1 pg (28-32) Mean Corpuscular Hemoglobin Concent 31.5 g/dL (31-35) Red Cell Distribution Width 15.7 % (11.7-14.4) Platelet Count 507 x10e3/uL (140-360) Neutrophils (%) (Auto) 79.5 % (38.7-80.0) Lymphocytes (%) (Auto) 8.7 % (18.0-39.1) Monocytes (%) (Auto) 6.6 % (4.4-11.3) Eosinophils (%) (Auto) 1.3 % (0.0-6.0) Basophils (%) (Auto) 0.4 % (0.0-1.0) Neutrophils # (Auto) 11.1 (2.1-6.9) Lymphocytes # (Auto) 1.2 (1.0-3.2) Monocytes # (Auto) 0.9 (0.2-0.8) Eosinophils # (Auto) 0.2 (0.0-0.4) Basophils # (Auto) 0.1 (0.0-0.1) Absolute Immature Granulocyte (auto 0.49 x10e3/uL (0-0.1) Sodium Level 135 mmol/L (136-145) Potassium Level 4.3 mmol/L (3.5-5.1) Chloride Level 98 mmol/L (98-107) Carbon Dioxide Level 18 mmol/L (22-29) Anion Gap 23.3 mmol/L (8-16) Blood Urea Nitrogen 57 mg/dL (7-26) Creatinine 4.35 mg/dL (0.72-1.25) Estimat Glomerular Filtration Rate 14 ML/MIN (60-) BUN/Creatinine Ratio 13 (6-25) Glucose Level 77 mg/dL (74-118) Calcium Level 9.7 mg/dL (8.4-10.2) Total Bilirubin 0.3 mg/dL (0.2-1.2) Aspartate Amino Transf (AST/SGOT) 31 IU/L (5-34) Alanine Aminotransferase (ALT/SGPT) 26 IU/L (0-55) Alkaline Phosphatase 141 IU/L (40-150) Creatine Kinase 21 IU/L (30-200) Creatine Kinase MB 0.90 ng/mL (0-5.0) Troponin I 0.006 ng/mL (0-0.300) Total Protein 8.1 g/dL (6.5-8.1) Albumin 2.7 g/dL (3.5-5.0) Globulin 5.4 g/dL (2.3-3.5) Albumin/Globulin Ratio 0.5 (0.8-2.0) Lipase 120 U/L (8-78) Imaging Imaging results reviewed: Yes Impressions [place] [address] Patient Name: LAWRENCE ÁLVAREZ MR #: [id number] : 1960 Age/Sex: 59/M Req #: [id number] Adm Physician: SHANTHI OWENS MD Ordered by: LILLIANA STINSON DO Report #: [id number] Location: [facility] Room/Bed: [place] [address] Procedure: [id number] CT/CT CHEST WO Exam Date: 02/05/20 Exam Time: 2029 REPORT STATUS: Signed EXAM: CT Chest, Abdomen and Pelvis without contrast INDICATION: Weakness COMPARISON: Chest CT 12/24/2019 TECHNIQUE: Chest, abdomen and pelvis were scanned utilizing a multidetector helical scanner from the lung apex to the pubic symphysis without administration of IV contrast. Coronal and sagittal reformations were obtained. Routine protocol was performed. IV CONTRAST: None ORAL CONTRAST: None COMPLICATIONS: None RADIATION DOSE: Total DLP: 865 mGy*cm Estimated effective dose: (DLP x 0.015 x size factor) mSv CTDIvol has been reviewed. It is below the limits set by the Radiation Protocol Committee (RPC). Dose modulation, iterative reconstruction, and/or weight based adjustment of the mA/kV was utilized to reduce the radiation dose to as low as reasonably achievable. FINDINGS: LINES and TUBES: None. LUNGS AND AIRWAYS: Multifocal patchy bilateral ground glass opacities. Multiple solid bilateral pulmonary nodules similar in size compared to 01/08/2020 examples include: * 1.9 cm right middle lobe nodule * 2.3 cm right lower lobe nodule. * 1.5 cm left upper lobe nodule. . Airways are normal. PLEURA: The pleural spaces are clear. HEART AND MEDIASTINUM: The thyroid gland is normal. The heart is normal in size. There is no pericardial effusion. Calcifications of the aorta and major branches including the coronary arteries. Aortic valve calcifications. Similar size of mildly enlarged right hilar and lower mediastinal lymph nodes, largest measures 1.8 cm. HEPATOBILIARY: No focal hepatic lesions. No biliary ductal dilation. GALLBLADDER: No radio-opaque stones or sludge. No wall thickening. SPLEEN: No splenomegaly. PANCREAS: No focal masses or ductal dilatation. ADRENALS: Similar size of the 5.2 cm solid left adrenal nodule compared to 12/24/2019 No adrenal nodules KIDNEYS/URETERS: Hyperdense striations in the left kidney. Subtle left perinephric fat stranding. No hydronephrosis. No cystic or solid mass lesions. Intact surgical changes of right nephrectomy. No stones. GI TRACT: No abnormal distention, wall thickening, or evidence of bowel obstruction. No evidence of appendicitis. PELVIC ORGANS/BLADDER: Radiodense fluid within the bladder lumen. Mild circumferential urinary bladder wall thickening and perivesicular fat stranding. LYMPH NODES: A 2.5 cm infrarenal aortocaval lymph node (series 2 image 80). VESSELS: Arterial calcifications. PERITONEUM / RETROPERITONEUM: No free air or fluid. BONES: Degenerative changes. No lytic or blastic lesion. SOFT TISSUES: Fat-containing bilateral inguinal hernias. IMPRESSION: 1. Findings of multifocal pneumonia, likely viral. 2. Stable pulmonary metastasis and left adrenal metastasis compared to 12/24/2019. A 2.5 cm infrarenal aortocaval lymph node is likely loni metastasis.. 3. Striated left nephrogram and radiodense contrast in the urinary bladder lumen is likely due to recent contrast administration in the setting of acute kidney injury/contrast-induced nephropathy and contrast retention, although pyelonephritis is possible. There are also subtle findings to suggest urinary bladder cystitis. 4. Coronary artery calcific atherosclerotic disease and aortic valve calcific disease. Signed by: Dale Canada DO on 02/05/2020 9:19 PM Dictated By: DALE CANADA DO 18 Transcribed By: DONNA on 02/05/202118 COPY TO: LILLIANA STINSON DO~ [place] [address] Patient Name: LAWRENCE ÁLVAREZ MR #: [id number] : 1960 Age/Sex: 59/M Req #: [id number] Adm Physician: SHANTHI OWENS MD Ordered by: LILLIANA STINSON DO Report #: [id number] Location: [facility] Room/Bed: [place] [address] Procedure: [id number] CT/CT ABDOMEN/PELVIS WO Exam Date: 02/05/20 Exam Time: 2029 REPORT STATUS: Signed EXAM: CT Chest, Abdomen and Pelvis without contrast INDICATION: Weakness COMPARISON: Chest CT 12/24/2019 TECHNIQUE: Chest, abdomen and pelvis were scanned utilizing a multidetector helical scanner from the lung apex to the pubic symphysis without administration of IV contrast. Coronal and sagittal reformations were obtained. Routine protocol was performed. IV CONTRAST: None ORAL CONTRAST: None COMPLICATIONS: None RADIATION DOSE: Total DLP: 865 mGy*cm Estimated effective dose: (DLP x 0.015 x size factor) mSv CTDIvol has been reviewed. It is below the limits set by the Radiation Protocol Committee (RPC). Dose modulation, iterative reconstruction, and/or weight based adjustment of the mA/kV was utilized to reduce the radiation dose to as low as reasonably achievable. FINDINGS: LINES and TUBES: None. LUNGS AND AIRWAYS: Multifocal patchy bilateral ground glass opacities. Multiple solid bilateral pulmonary nodules similar in size compared to 01/08/2020 examples include: * 1.9 cm right middle lobe nodule * 2.3 cm right lower lobe nodule. * 1.5 cm left upper lobe nodule. . Airways are normal. PLEURA: The pleural spaces are clear. HEART AND MEDIASTINUM: The thyroid gland is normal. The heart is normal in size. There is no pericardial effusion. Calcifications of the aorta and major branches including the coronary arteries. Aortic valve calcifications. Similar size of mildly enlarged right hilar and lower mediastinal lymph nodes, largest measures 1.8 cm. HEPATOBILIARY: No focal hepatic lesions. No biliary ductal dilation. GALLBLADDER: No radio-opaque stones or sludge. No wall thickening. SPLEEN: No splenomegaly. PANCREAS: No focal masses or ductal dilatation. ADRENALS: Similar size of the 5.2 cm solid left adrenal nodule compared to 12/24/2019 No adrenal nodules KIDNEYS/URETERS: Hyperdense striations in the left kidney. Subtle left perinephric fat stranding. No hydronephrosis. No cystic or solid mass lesions. Intact surgical changes of right nephrectomy. No stones. GI TRACT: No abnormal distention, wall thickening, or evidence of bowel obstruction. No evidence of appendicitis. PELVIC ORGANS/BLADDER: Radiodense fluid within the bladder lumen. Mild circumferential urinary bladder wall thickening and perivesicular fat stranding. LYMPH NODES: A 2.5 cm infrarenal aortocaval lymph node (series 2 image 80). VESSELS: Arterial calcifications. PERITONEUM / RETROPERITONEUM: No free air or fluid. BONES: Degenerative changes. No lytic or blastic lesion. SOFT TISSUES: Fat-containing bilateral inguinal hernias. IMPRESSION: 1. Findings of multifocal pneumonia, likely viral. 2. Stable pulmonary metastasis and left adrenal metastasis compared to 12/24/2019. A 2.5 cm infrarenal aortocaval lymph node is likely loni metastasis.. 3. Striated left nephrogram and radiodense contrast in the urinary bladder lumen is likely due to recent contrast administration in the setting of acute kidney injury/contrast-induced nephropathy and contrast retention, although pyelonephritis is possible. There are also subtle findings to suggest urinary bladder cystitis. 4. Coronary artery calcific atherosclerotic disease and aortic valve calcific disease. Signed by: Dale Canada DO on 02/05/2020 9:19 PM Dictated By: DALE CANADA DO 18 Transcribed By: DONNA on 02/05/202118 COPY TO: LILLIANA STINSON DO~ Procedures 12 Lead ECG Interpretation ECG Interpretation : ECG: ECG 1 Concreting Supervisor: Interpreted by ED physician Date: Feb 05, 2020 Prior ECG tracings: reviewed Rhythm: A-V block (1st) Rate: bradycardia BPM: 58 QRS axis: left Conduction: incomplete RBBB ST segments normal: Yes T waves normal: Yes Clinical Impression: abnormal ECG Critical Care Time Total Critical Care Time (min): 31 Time ED Physician saw patient: 02:49 Critcal care necessary due to: sepsis Assessment & Plan Medical Decision Making MDM 59 year old male presents with signs and symptoms concerning for generalized weakness and sepsis . Lactic acid, CBC, and herron cultures ordered. Lactic acid is 2.2 which suggests severe sepsis. Source of infection appears to be a UTI and pneumonia . Patient's disposition is admission to a critical care unit. NO capacity at this facility . Plan to transfer to [facility] ; Dr Mckeon and Dr Nunn graciously accepted admission of the patient to their service Assessment & Plan Final Impression: (1) COVID-19 (2) Sepsis (3) Hypothermia (4) UTI (urinary tract infection) (5) Pneumonia Depart Disposition: TRANS TO OTHER [facility] Last Vital Signs Date Time Temp Pulse Resp B/P (MAP) Pulse Ox O2 Delivery O2 Flow Rate FiO2 02/06/20 01:33 95.6 70 20 121/60 100 Home Meds Reported Medications Metformin Hcl (METFORMIN HCL) 500 Mg Tablet, 1000 MG PO BID, #60 TAB 12/24/19 Insulin Detemir (Levemir Flextouch) 100 Unit/1 Ml Insuln.pen, 40 UNITS SC HS, UNIT 12/24/19 Insulin Detemir (Levemir Flextouch) 100 Unit/1 Ml Insuln.pen, 35 UNITS SC DAILY, UNIT 12/24/19 Insulin Lispro (HUMALOG) 100 Unit/1 Ml Cartridge, 15 UNITS SC TIDWM 12/24/19 Furosemide (FUROSEMIDE) 20 Mg Tablet, 20 MG PO BID 12/24/19 Valsartan (DIOVAN) 80 Mg Tab, 40 MG PO DAILY, TAB 12/24/19 Carvedilol (CARVEDILOL) 6.25 Mg Tablet, 1 TAB PO BID 12/24/19 Atorvastatin Calcium (ATORVASTATIN CALCIUM) 20 Mg Tablet, 20 MG PO HS, #30 TAB 12/24/19 Medications in the ED Sodium Chloride 1,000 ml @ 0 mls/hr Q0M STAT IV Last administered on 02/05/20at 20:10; Admin Dose 999 MLS/HR; Start 02/05/20 at 19:09; Stop 02/05/20 at 19:11; Status DC Aspirin 81 mg PRN ONCE PO ; Start 02/05/20 at 19:15; Stop 02/05/20 at 19:40; Status DC Piperacillin Sod/ Tazobactam Sod 50 ml @ 50 mls/hr ONCE STAT IV Last administered on 02/05/20at 20:10; Admin Dose 50 MLS/HR; Start 02/05/20 at 19:22; Stop 02/05/20 at 20:21; Status LILLIANA GREENWOOD DO Feb 05, 2020 19:13
[2020-02-05] MEDS ORDERED: ASPIRIN 81 MG CHEW TAB PO ONE (19:15)
--- NOTE | 2020-02-05 19:21 | NUR ---
patient given apple juice for symptomatic hypoglycemia
[2020-02-05] MEDS ORDERED: PIPER-TAZ 3.375 GM 50 ML IV STA (19:22)
--- NOTE | 2020-02-05 19:40 | NUR ---
dr blackwell informed of temperature readings
[2020-02-05 19:52] LABS: BASOPHILS # (AUTO) 0.1 (0.0-0.1); BASOPHILS % 0.4 % (0.0-1.0); EOSINOPHILS # (AUTO) 0.2 (0.0-0.4); EOSINOPHILS % 1.3 % (0.0-6.0); HEMATOCRIT 31.1 % (38.2-49.6); HEMOGLOBIN 9.8 g/dL (14.0-18.0); LYMPHOCYTES # (AUTO) 1.2 (1.0-3.2); LYMPHOCYTES % 8.7 % (18.0-39.1); MEAN CORPUSCULAR HEMOGLOBIN 26.1 pg (28-32); MEAN CORPUSCULAR HGB CONC 31.5 g/dL (31-35); MEAN CORPUSCULAR VOLUME 82.9 fL (81-99); MONOCYTES # (AUTO) 0.9 (0.2-0.8); MONOCYTES % 6.6 % (4.4-11.3); NEUTROPHILS # (AUTO) 11.1 (2.1-6.9); NEUTROPHILS % 79.5 % (38.7-80.0); PLATELET COUNT 507 x10e3/uL (140-360); RED BLOOD COUNT 3.75 x10e6/uL (4.3-5.7); RED CELL DISTRIBUTION WIDTH 15.7 % (11.7-14.4)
--- NOTE | 2020-02-05 20:10 | NUR ---
INFORMED DR. STINSON OF BEING UNABLE TO OBTAIN ORAL, AXILLARY, OR RECTAL TEMP AT THIS TIME; ONLY ABLE TO OBTAIN SKIN TEMP WITH FOREHEAD SKIN TEMP IN TRIAGE.
[2020-02-05 20:12] LABS: ALBUMIN 2.7 g/dL (3.5-5.0); ALBUMIN/GLOBULIN RATIO 0.5 (0.8-2.0); ANION GAP 23.3 mmol/L (8-16); CALCIUM 9.7 mg/dL (8.4-10.2); CREATININE, SERUM 4.35 mg/dL (0.72-1.25); POTASSIUM 4.3 mmol/L (3.5-5.1)
[2020-02-05 20:18] LABS: CREATINE KINASE MB 0.9 ng/mL (0-5.0)
--- NOTE | 2020-02-05 20:25 | Diagnostic Imaging Report ---
Examination: Single AP view of the chest. COMPARISON: CT chest 12/24/2019 INDICATION: Chills, weakness, history of lung cancer IMPRESSION: 1. Lines and Tubes: None 2. Lungs are mildly hypoinflated. Bilateral nodular opacities, consistent with previously visualized metastatic nodules. No consolidation or effusion. 3. Cardiomediastinal silhouette is borderline in size. Pulmonary vasculature is normal. 4. No acute bony abnormalities. Signed by: Dr. Isai Szymanski M.D. on 02/05/2020 8:21 PM
[2020-02-05] MEDS ORDERED: MORPHINE SULFATE INJ 4 MG/ML INJ 1ML IV PRN (20:30)
[2020-02-05] MEDS ORDERED: SODIUM CHLORIDE 0.9% 1000ML 1,000 ML IV SCH (20:30)
[2020-02-05] MEDS ORDERED: ONDANSETRON HCL INJ 2MG/ML 2ML 2 MG/ML VIAL IV PRN (20:30)
--- NOTE | 2020-02-05 21:09 | NUR ---
16 FR TEMPERATURE VIRK CATH PLACED USING STERILE TECHNIQUE, DRAINING CLEAR YELLOW URINE AT THIS TIME, SPECIMEN SENT TO LAB.
--- NOTE | 2020-02-05 21:11 | NUR ---
SEVERAL WARM BLANKETS PLACED ON PT, MAYUR HUGGER UNAVAILABLE AT THIS TIME.
--- NOTE | 2020-02-05 21:22 | Diagnostic Imaging Report ---
EXAM: CT Chest, Abdomen and Pelvis without contrast INDICATION: Weakness COMPARISON: Chest CT 12/24/2019 TECHNIQUE: Chest, abdomen and pelvis were scanned utilizing a multidetector helical scanner from the lung apex to the pubic symphysis without administration of IV contrast. Coronal and sagittal reformations were obtained. Routine protocol was performed. IV CONTRAST: None ORAL CONTRAST: None COMPLICATIONS: None RADIATION DOSE: Total DLP: 865 mGy*cm Estimated effective dose: (DLP x 0.015 x size factor) mSv CTDIvol has been reviewed. It is below the limits set by the Radiation Protocol Committee (RPC). Dose modulation, iterative reconstruction, and/or weight based adjustment of the mA/kV was utilized to reduce the radiation dose to as low as reasonably achievable. FINDINGS: LINES and TUBES: None. LUNGS AND AIRWAYS: Multifocal patchy bilateral ground glass opacities. Multiple solid bilateral pulmonary nodules similar in size compared to 01/08/2020 examples include: * 1.9 cm right middle lobe nodule * 2.3 cm right lower lobe nodule. * 1.5 cm left upper lobe nodule. . Airways are normal. PLEURA: The pleural spaces are clear. HEART AND MEDIASTINUM: The thyroid gland is normal. The heart is normal in size. There is no pericardial effusion. Calcifications of the aorta and major branches including the coronary arteries. Aortic valve calcifications. Similar size of mildly enlarged right hilar and lower mediastinal lymph nodes, largest measures 1.8 cm. HEPATOBILIARY: No focal hepatic lesions. No biliary ductal dilation. GALLBLADDER: No radio-opaque stones or sludge. No wall thickening. SPLEEN: No splenomegaly. PANCREAS: No focal masses or ductal dilatation. ADRENALS: Similar size of the 5.2 cm solid left adrenal nodule compared to 12/24/2019 No adrenal nodules KIDNEYS/URETERS: Hyperdense striations in the left kidney. Subtle left perinephric fat stranding. No hydronephrosis. No cystic or solid mass lesions. Intact surgical changes of right nephrectomy. No stones. GI TRACT: No abnormal distention, wall thickening, or evidence of bowel obstruction. No evidence of appendicitis. PELVIC ORGANS/BLADDER: Radiodense fluid within the bladder lumen. Mild circumferential urinary bladder wall thickening and perivesicular fat stranding. LYMPH NODES: A 2.5 cm infrarenal aortocaval lymph node (series 2 image 80). VESSELS: Arterial calcifications. PERITONEUM / RETROPERITONEUM: No free air or fluid. BONES: Degenerative changes. No lytic or blastic lesion. SOFT TISSUES: Fat-containing bilateral inguinal hernias. IMPRESSION: 1. Findings of multifocal pneumonia, likely viral. 2. Stable pulmonary metastasis and left adrenal metastasis compared to 12/24/2019. A 2.5 cm infrarenal aortocaval lymph node is likely loni metastasis.. 3. Striated left nephrogram and radiodense contrast in the urinary bladder lumen is likely due to recent contrast administration in the setting of acute kidney injury/contrast-induced nephropathy and contrast retention, although pyelonephritis is possible. There are also subtle findings to suggest urinary bladder cystitis. 4. Coronary artery calcific atherosclerotic disease and aortic valve calcific disease. Signed by: Dale Canada DO on 02/05/2020 9:19 PM
[2020-02-05 21:24] LABS: BILIRUBIN,URINE NEGATIVE (NEGATIVE); CLARITY,URINE CLOUDY (CLEAR); COLOR,URINE YELLOW (YELLOW); KETONES,URINE NEGATIVE (NEGATIVE); LEUKOCYTE ESTERASE ,URINE LARGE (NEGATIVE); NITRITE,URINE POSITIVE (NEGATIVE); PROTEIN,URINE DIPSTICK 2+ (NEGATIVE); URINE UROBILINOGEN 0.2 mg/dL (0.2 - 1)
--- NOTE | 2020-02-05 21:30 | NUR ---
PT SWABBED FOR COVID-19 AT THIS TIME
[2020-02-05 21:38] LABS: BACTERIA,URINE MANY /HPF; WBC,URINE (MAN) >50 /HPF (0-5)
[2020-02-06] MEDS ORDERED: SODIUM CHLORIDE 0.9% 1000ML 1,000 ML IV STA (00:16)
--- NOTE | 2020-02-06 01:11 | NUR ---
PT MADE AWARE OF PENDING TRANSFER
--- NOTE | 2020-02-06 03:03 | NUR ---
PT MADE AWARE OF ACCEPTANCE AT [facility]; [address] ROOM 1105.
--- NOTE | 2020-02-06 03:30 | NUR ---
REPORT GIVEN TO CARL RICHARD; RECEIVING NURSE AT [facility]; ALL QUESTIONS ANSWERED.
--- NOTE | 2020-02-06 03:50 | NUR ---
BEDSIDE REPORT GIVEN TO [facility] AT THIS TIME, PT TO BE TRANSPORTED VIA EMS ON ISOLATION PRECAUTIONS TO [facility].
== END 2020-02-06 03:55 | disposition other institution (70) ==
LOC: ER 18:54 → UNDOADMIN 20:21 → ERHOLD 20:21 → ER 02-06 03:55
DX: R53.1 Weakness (principal); A41.89 Other specified sepsis; U07.1 COVID-19; J18.9 Pneumonia, unspecified organism; T68.XXXA Hypothermia, initial encounter; N39.0 Urinary tract infection, site not specified; I10 Essential (primary) hypertension; E78.5 Hyperlipidemia, unspecified; Z85.528 Personal history of other malignant neoplasm of kidney; Z85.118 Personal history of other malignant neoplasm of bronchus and lung
CPT/HCPCS: 36415; 51700; 71045; 71250; 74176; 80053; 81001; 82550; 82553; 83605; 83690; 84484; 85025; 87040; 87086; 87635; 93005; 99285; J2543; J7030

== ENCOUNTER 2022-05-26 00:21 | Emergency (ER) | payer MEDICARE ==
[~2022-05-26] VITALS: Ht 170.2 cm; Wt 87.1 kg
[2022-05-26] MEDS ORDERED: ONDANSETRON HCL INJ 2MG/ML 2ML 2 MG/ML VIAL IV PRN (00:45)
[2022-05-26] MEDS ORDERED: SODIUM CHLORIDE 0.9% 1000ML 1,000 ML IV ONE (00:45)
[2022-05-26 01:01] LABS: BASOPHILS % 0.1 % (0.0-1.0); EOSINOPHILS # (AUTO) 0.1 (0.0-0.4); EOSINOPHILS % 0.7 % (0.0-6.0); HEMOGLOBIN 11.9 g/dL (14.0-18.0); LYMPHOCYTES # (AUTO) 1.4 (1.0-3.2); LYMPHOCYTES % 8.5 % (18.0-39.1); MEAN CORPUSCULAR HEMOGLOBIN 28.8 pg (28-32); MEAN CORPUSCULAR HGB CONC 31.3 g/dL (31-35); MONOCYTES # (AUTO) 0.8 (0.2-0.8); MONOCYTES % 4.9 % (4.4-11.3); NEUTROPHILS # (AUTO) 13.7 (2.1-6.9); NEUTROPHILS % 85.4 % (38.7-80.0); PLATELET COUNT 252 x10e3/uL (140-360); RED BLOOD COUNT 4.13 x10e6/uL (4.3-5.7); RED CELL DISTRIBUTION WIDTH 17.5 % (11.7-14.4)
[2022-05-26 01:11] LABS: INR 0.84; PROTHROMBIN TIME 12.3 seconds (11.9-14.5)
[2022-05-26 01:21] LABS: ALBUMIN/GLOBULIN RATIO 0.9 (0.8-2.0); ANION GAP 14.3 mmol/L (8-16); CALCIUM 8.8 mg/dL (8.4-10.2); CREATININE, SERUM 1.59 mg/dL (0.72-1.25); POTASSIUM 4.3 mmol/L (3.5-5.1)
[2022-05-26] MEDS: LACTATED RINGER'S 1,000 ML INJ ONE ×2 (01:49→02:46)
[2022-05-26] MEDS ORDERED: IOPAMIDOL 370 MG/ML 100 ML INFUS..BTL INJ ONE (02:10)
[2022-05-26 03:00] LABS: CLARITY,URINE CLEAR (CLEAR); COLOR,URINE YELLOW (YELLOW); KETONES,URINE NEGATIVE (NEGATIVE); LEUKOCYTE ESTERASE ,URINE NEGATIVE (NEGATIVE); NITRITE,URINE NEGATIVE (NEGATIVE); PROTEIN,URINE DIPSTICK NEGATIVE (NEGATIVE); URINE UROBILINOGEN 0.2 mg/dL (0.2 - 1)
[2022-05-26 03:03] LABS: BACTERIA,URINE RARE /HPF; EPITHELIAL CELLS,URINE FEW /LPF; WBC,URINE (MAN) 0-5 /HPF (0-5)
[2022-05-26] MEDS ORDERED: MIRALAX17 GM PO (03:40)
[2022-05-26 05:08] VITALS: BP 93/77
== END 2022-05-26 05:00 | disposition home or self-care (01) ==
LOC: ER 00:27
DX: K62.89 Other specified diseases of anus and rectum (principal); K64.9 Unspecified hemorrhoids; E11.65 Type 2 diabetes mellitus with hyperglycemia; I10 Essential (primary) hypertension; E78.5 Hyperlipidemia, unspecified; Z85.53 Personal history of malignant neoplasm of renal pelvis; Z85.118 Personal history of other malignant neoplasm of bronchus and lung
CPT/HCPCS: 36415; 74177; 80053; 81001; 83690; 85025; 85610; 99284; J7030; Q9967